=== PATIENT | female | born 1970 | race Caucasian/White ===

== ENCOUNTER 2017-10-24 13:52 | Outpatient (REF) | payer BC, SELFPAY | END 2017-10-24 13:53 | LOC: NCHCN 13:52 | PROVIDERS: PCP Nurse Practitioner; Visit Provider Nurse Practitioner | DX: Z87.440 Personal history of urinary (tract) infections (principal) | CPT/HCPCS: 87077; 87086; 87186 ==

== ENCOUNTER 2017-10-29 17:42 | Outpatient (REF) | payer BC, SELFPAY ==
[2017-10-29 20:32] LABS: Bilirubin Negative (Negative); Blood Trace-lysed (Negative); Clarity Clear; Glucose Negative (Negative); Ketones Negative (Negative); Leukocyte Esterase Negative (Negative); Nitrite Negative (Negative); Specific Gravity 1.025 (1.005-1.025); Urobilinogen 0.2 EU/dL (Up TO 0.2); pH 6.5 (5-8)
[2017-10-29 20:44] LABS: Bacteria Moderate HPF (Negative); C & S Indicated? C&S Done As Ordered; Casts Negative LPF (Negative); Crystals Negative HPF (Negative); Epithelial Cells Many HPF (Negative); Mucus Negative (Negative); RBC 20-50 (0-2); WBC 0-2 HPF (0-5)
== END 2017-10-29 17:43 ==
LOC: NCHCN 17:42
PROVIDERS: PCP Nurse Practitioner; Visit Provider Nurse Practitioner Family
DX: R30.0 Dysuria (principal); Z87.440 Personal history of urinary (tract) infections
CPT/HCPCS: 81003; 81015; 87086

== ENCOUNTER 2018-02-04 17:27 | Outpatient (REF) | payer BC, SELFPAY | END 2018-02-04 17:47 | LOC: NCHCN 17:27 | PROVIDERS: PCP Nurse Practitioner; Visit Provider Internal Medicine | DX: R30.0 Dysuria (principal) | CPT/HCPCS: 87077; 87086; 87186 ==

== ENCOUNTER 2018-02-25 07:29 | Emergency (ER) | payer BC, SELFPAY ==
[2018-02-25 07:33] VITALS: BP 147/72; PULSE 78; RESP 14; TEMP 36.5; O2SAT 100
[2018-02-25 07:42] LABS: Bilirubin Negative (Negative); Blood Moderate (Negative); Clarity Cloudy; Glucose Negative (Negative); Ketones Negative (Negative); Leukocyte Esterase Large (Negative); Nitrite Negative (Negative); Specific Gravity 1.025 (1.005-1.025); Urobilinogen 0.2 EU/dL (Up TO 0.2)
--- NOTE | 2018-02-25 07:44 | W.ED.GENAD ---
Discharge Plan Disposition Patient Disposition: HOME Condition: Good Discharge Details Chief Complaint: Abd Prob Clinical Impression: UTI (urinary tract infection) Primary Care Provider: Donna Edmonds ED Provider: Kailash Wang Discharge Instructions Instructions: Urinary Tract Infection in Women (ED) Additional Instructions: Please take medication as directed. Please take 1 tablet of Levaquin daily. Please drink 8-10 cups of water per day. Please drink cranberry juice. If you notice any worsening of your symptoms, or any new symptoms such as vomiting, diarrhea, fever, chills, shortness of breath, chest pain, numbness, weakness, or fainting , please return immediately to the emergency department for reevaluation. Please follow up with your primary care provider as soon as possible for reassessment and reevaluation. As always, it was a pleasure participating in your medical care today. Referrals: Donna Edmonds [Primary Care Provider] - Medical Decision Making This is a very pleasant 48-year-old female who present for evaluation of increase in urinary frequency mild dysuria that started last night. She shows no systemic symptoms of pyelonephritis, no fever chills, she has reassuring vital signs. Urinalysis demonstrates signs and symptoms consistent with UTI in conjunction with a clinical history. The patient has no red flags of diabetes, or other risk factors. We will give her a dose of Pyridium, as well as Levaquin here, and 2 pills for her home dose since the pharmacies are closed due to the holiday season. Urinalysis and symptomatology is clinically consistent with a urinary tract infection and clinically inconsistent with a urolithiasis with no flank pain, back pain, or abdominal pain. We discussed red flags which to return and the importance of close PCP follow-up. I have extensively reviewed the treatment plan and discharge instructions with the patient. I have addressed all patient concerns at this time. The patient was made aware of what symptoms to monitor for that would warrant a return to the emergency department. Discussed the plan with the patient, they demonstrate verbal understanding and agreement with our assessment and plan at this time. HPI General Date/Time Provider Initiated Documentation: 02/25/18 07:42. HPI Narrative: This is a 48-year-old female with no significant past medical history except for history of urinary tract infection who presents today for symptoms of urinary frequency and mild burning. Patient states that she has had 3 urinary tract infections this year, most recent one was a month ago, and after taking Macrobid her symptoms improved for the last 3 weeks. However last night she experienced some increase in frequency and mild burning that started this morning. She denies any systemic symptoms of fever or chills. She denies any flank pain, nausea vomiting or diarrhea. She does admit to Oscar duration after intercourse. She denies any dryness in the vaginal area. She denies any trauma, or history of STDs. No other modifying factors past surgical history is positive for hysterectomy. She denies any IV or illicit drug use or pertinent family history. Related Data Allergies Allergy/AdvReac Type Severity Reaction Status Date / Time amoxicillin Allergy Unverified 02/25/18 07:44 erythromycin base Allergy Unverified 02/25/18 07:44 Sulfa (Sulfonamide Allergy Unverified 02/25/18 07:44 Antibiotics) General Stated Complaint: Abd Prob NITA: 3 Review of Systems Review of Systems All systems reviewed & are unremarkable except as noted in HPI and below PFSH Medical History Abdominal pain Arthritis Dyspepsia Fibrocystic breast disease Frequent urinary tract infections Intermittent palpitations Small bowel obstruction Surgical History Abdominal hysterectomy Cholecystectomy Social History Smoking/Tobacco Use Status: Never Exam Narrative Exam Narrative: 1.Const: Well-nourished, Well-developed, appearing stated age 2.Eyes: PERRL, no conjunctival injection, and symmetrical lids. 3.ENT: Atraumatic external nose and ears. Moist MM. Neck: Symmetric, trachea midline, No thyromegaly. 4.CVS: +S1/S2, No murmurs or gallops. Peripheral pulses 2+ and equal in all extremities. Brisk capillary refill in all extremities. 5.RESP: Unlabored respiratory effort. Clear to auscultation bilaterally. No wheezes rales or rhonchi 6.GI: Soft, Nontender/Nondistended, No hepatosplenomegaly. No guarding or rebound. No flank pain or tenderness. 7.MSK: Normocephalic/Atraumatic, Extremities w/o deformity or ttp No cyanosis or clubbing, Normal movement of all extremities 8.Skin: Warm, Dry. No rashes or lesions. 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 Sensation grossly intact, no focal neurologic deficits. 10.Psych: (AAO) x3. Appropriate mood and affect Course Vital Signs Temperature 36.5 C 02/25/18 07:33 Pulse 78 02/25/18 07:33 Respiratory Rate 14 02/25/18 07:33 Blood Pressure 147/72 H 02/25/18 07:33 Pulse Oximetry 100 02/25/18 07:33 Temperature 36.5 C 02/25/18 07:33 Temperature Source Temporal Artery Scan 02/25/18 07:33 Pulse 78 02/25/18 07:33 Respiratory Rate 14 02/25/18 07:33 Blood Pressure 147/72 H 02/25/18 07:33 Blood Pressure Position Sitting 02/25/18 07:33 Pulse Oximetry 100 02/25/18 07:33 Oxygen Delivery Method Room Air 02/25/18 07:33 Oxygen Flow Rate 0 02/25/18 07:33 Pain Level 6 02/25/18 07:33
[2018-02-25 07:52] LABS: Bacteria Many HPF (Negative); C & S Indicated? Yes; Casts Negative LPF (Negative); Crystals Negative HPF (Negative); Epithelial Cells Negative HPF (Negative); Mucus Negative (Negative); RBC >50 (0-2); WBC >50 HPF (0-5)
[2018-02-25] MEDS: Phenazopyridine 100 MG TAB PO (07:52)
--- NOTE | 2018-02-25 07:54 | NUR.NOTE ---
2 250mg levoquin tablets given for home use.
== END 2018-02-25 08:01 | disposition home or self-care (01) ==
LOC: ER 08:03
PROVIDERS: Emergency Provider Student in an Organized Health Care Education/Training Program; PCP Nurse Practitioner
DX: N39.0 Urinary tract infection, site not specified (principal); B96.20 Unspecified Escherichia coli [E. coli] as the cause of diseases classified elsewhere
CPT/HCPCS: 87077; 99283; 81003; 81015; 87086; 87186

== ENCOUNTER 2019-01-27 15:18 | Outpatient (REF) | payer BC, SELFPAY | END 2019-01-27 15:38 | LOC: NCHCN 15:18 | PROVIDERS: PCP Nurse Practitioner; Visit Provider Nurse Practitioner Family | DX: R30.0 Dysuria (principal) | CPT/HCPCS: 87077; 87086; 87186 ==

== ENCOUNTER 2019-03-10 01:17 | Outpatient (CLI) | payer BC, SELFPAY ==
--- NOTE | 2019-03-10 11:12 | DI.MAMMO_ITS ---
EXAM: MAMMO SCREENING CLINICAL HISTORY: SCREENING TECHNIQUE: Mammograms were interpreted according to the usual protocol including computer analysis w [employer] CAD system, tomosynthesis and C-view imaging. COMPARISON: Current examination is compared with previous examinations including January 2010 FINDINGS: Breasts are of moderate density with fairly symmetrical distribution of fibroglandular tissue. No do minant mass or clumped microcalcification is identified in either breast. Current examination is com pared with previous examinations including January 2010 and allowing for differences in technique, t here has been no gross interval change appearance in comparison with the previous studies. IMPRESSION: No specific evidence of malignancy at this time. Routine screening examinations are suggested at yea rly intervals in this age group according to the ACS/ACR guidelines. Category 1, breast density B. BI-RADS Cat 1 - Negative Breast Density - Category B - Scattered areas of fibroglandular density
== END 2019-03-10 01:37 ==
PROVIDERS: PCP Nurse Practitioner Family; Visit Provider Nurse Practitioner Family
DX: Z12.31 Encounter for screening mammogram for malignant neoplasm of breast (principal)
CPT/HCPCS: 77063; 77067